=== PATIENT | male | born 1960 | race Caucasian/White ===

== ENCOUNTER → 2021-12-17 | Day surgery (SDC) | payer OTHER ==
[~2021-12-17] VITALS: Ht 177.8 cm; Wt 79.4 kg
[~2021-12-17] MED LIST: CERTAGEN1 EACH PO; FLOMAX 0.4 MG0.4 MG PO; NAPROXEN500 MG PO; NORCO 5-325 TA1 EACH PO; PRINIVIL10 MG PO; ROBAXIN750 MG PO; ULTRAM50 MG PO; VITAMIN B-121000 MC1 PO
[2021-12-17 11:38] LABS: BUN/CREAT RATIO (CALC) 15.4 RATIO; CREATININE 1.04 mg/dL (0.67-1.17); POTASSIUM 3.9 mmol/L (3.5-5.1)
== END | disposition home or self-care (01) ==
LOC: FAS 09:54
PROVIDERS: Anesthesiology
DX: D17.22 Benign lipomatous neoplasm of skin and subcutaneous tissue of left arm (principal); D17.21 Benign lipomatous neoplasm of skin and subcutaneous tissue of right arm; D17.23 Benign lipomatous neoplasm of skin and subcutaneous tissue of right leg; D17.39 Benign lipomatous neoplasm of skin and subcutaneous tissue of other sites; D36.7 Benign neoplasm of other specified sites; I10 Essential (primary) hypertension; F19.90 Other psychoactive substance use, unspecified, uncomplicated; Z79.899 Other long term (current) drug therapy; Z88.8 Allergy status to other drugs, medicaments and biological substances; Z72.89 Other problems related to lifestyle
CPT/HCPCS: 36415; 80048; J0690; J1644; J2250; J2704; J3010; J7120